=== PATIENT | male | born 1975 | race Hispanic/Latino ===

== ENCOUNTER 2019-11-22 08:50 | Emergency (ER) | payer SELFPAY ==
--- NOTE | 2019-11-22 15:56 | RAD ---
RIGHT ANKLE THREE VIEWS: 11/22/19 No fracture was seen. The articular surfaces are smooth. Mild soft tissue swelling is present. IMPRESSION: No acute bony finding. POS: HOME
== END 2019-11-22 09:50 | disposition home or self-care (01) ==
LOC: BURERS 08:50
DX: S93.401A Sprain of unspecified ligament of right ankle, initial encounter (principal); M19.071 Primary osteoarthritis, right ankle and foot
CPT/HCPCS: 36415; 84550